=== PATIENT | male | born 1960 | race Caucasian/White ===

== ENCOUNTER → 2019-05-01 | Outpatient (CLI) | payer MEDICAID ==
[~2019-05-01] MED LIST: CLINDAMYCIN PO; COLACE100 MG PO; FLAGYL500 MG PO; GABAPENTIN 100100 MG; GLUCOPHAGE XR500 MG PO; HUMALOG100 UNIT/1 SUBQ; KEFLEX500 M1 PO; LANTUS SUBQ; METFORMIN HCL500 MG; NEURONTIN 300300 M1 PO; NORCO 5-325 TA1 EAC1 PO; NORCO 5-325 TA1 EACH PO; PHENERGAN50 MG RC; PRAVACHOL40 MG PO; PREVASTATIN; PROBIOTIC1 EAC1 PO; ZESTRIL20 MG PO; ZOFRAN4 MG PO
== END ==
LOC: M.WC 09:44
DX: E11.621 Type 2 diabetes mellitus with foot ulcer (principal); L97.522 Non-pressure chronic ulcer of other part of left foot with fat layer exposed; E11.40 Type 2 diabetes mellitus with diabetic neuropathy, unspecified; G47.30 Sleep apnea, unspecified; I10 Essential (primary) hypertension; F17.200 Nicotine dependence, unspecified, uncomplicated

== ENCOUNTER → 2019-05-08 | Outpatient (CLI) | payer MEDICAID | LOC: M.WC 01:49 | DX: E11.621 Type 2 diabetes mellitus with foot ulcer (principal); L97.522 Non-pressure chronic ulcer of other part of left foot with fat layer exposed; L03.032 Cellulitis of left toe; L84 Corns and callosities; E11.40 Type 2 diabetes mellitus with diabetic neuropathy, unspecified; G47.30 Sleep apnea, unspecified; I10 Essential (primary) hypertension; F17.200 Nicotine dependence, unspecified, uncomplicated ==

== ENCOUNTER → 2019-05-15 | Outpatient (CLI) | payer MEDICAID | LOC: M.WC 04:38 | DX: E11.621 Type 2 diabetes mellitus with foot ulcer (principal); L97.522 Non-pressure chronic ulcer of other part of left foot with fat layer exposed; L03.032 Cellulitis of left toe; L84 Corns and callosities; E11.40 Type 2 diabetes mellitus with diabetic neuropathy, unspecified; I10 Essential (primary) hypertension; G47.30 Sleep apnea, unspecified; F17.200 Nicotine dependence, unspecified, uncomplicated ==

== ENCOUNTER → 2019-05-22 | Outpatient (CLI) | payer MEDICAID | LOC: M.WC 01:33 | DX: E11.621 Type 2 diabetes mellitus with foot ulcer (principal); L97.522 Non-pressure chronic ulcer of other part of left foot with fat layer exposed; L03.032 Cellulitis of left toe; L84 Corns and callosities; E11.40 Type 2 diabetes mellitus with diabetic neuropathy, unspecified; G47.30 Sleep apnea, unspecified; I10 Essential (primary) hypertension; F17.200 Nicotine dependence, unspecified, uncomplicated ==

== ENCOUNTER → 2019-05-29 | Outpatient (CLI) | payer MEDICAID | LOC: M.WC 01:31 | DX: E11.621 Type 2 diabetes mellitus with foot ulcer (principal); L97.521 Non-pressure chronic ulcer of other part of left foot limited to breakdown of skin; L03.032 Cellulitis of left toe; L84 Corns and callosities; E11.40 Type 2 diabetes mellitus with diabetic neuropathy, unspecified; I10 Essential (primary) hypertension; G47.30 Sleep apnea, unspecified; F17.200 Nicotine dependence, unspecified, uncomplicated ==

== ENCOUNTER 2019-09-04 11:07 | Emergency (ER) | payer MEDICAID ==
[~2019-09-04] VITALS: Ht 177.8 cm; Wt 136.1 kg
[2019-09-04] MEDS ORDERED: ASA81BEC PO (11:19)
[2019-09-04] MEDS ORDERED: LIPITOR10 MG PO (11:19)
[2019-09-04] MEDS ORDERED: ONDANSETRON HCL4 M2 PO (13:45)
[2019-09-04] MEDS ORDERED: FLEXERIL PO (13:45)
[2019-09-04] MEDS ORDERED: MEDROLDOSEPACK PO (13:45)
[2019-09-04] MEDS ORDERED: NAPROSYN500 MG PO (13:45)
[2019-09-04] MEDS ORDERED: NORCO 5-325 TA1 EAC1 PO (13:45)
[2019-09-04 14:05] VITALS: BP 205/105
== END 2019-09-04 14:06 | disposition home or self-care (01) ==
LOC: M.ERS 11:07
DX: M54.42 Lumbago with sciatica, left side (principal); I10 Essential (primary) hypertension; E78.00 Pure hypercholesterolemia, unspecified; E11.40 Type 2 diabetes mellitus with diabetic neuropathy, unspecified; F17.210 Nicotine dependence, cigarettes, uncomplicated; Z90.49 Acquired absence of other specified parts of digestive tract